=== PATIENT | male | born 1945 | race Caucasian/White ===

== ENCOUNTER → 2016-07-15 | Outpatient (CLI) | payer OTHER ==
[~2016-07-15] MED LIST: ACCUPRIL OR; ACCUPRIL40 MG PO; ACETAMINOPHEN325 M1 OR; ALEVE220 MG PO; ASPIRIN325 OR; BACTRIM DS TAB1 EACH PO; CEFAZOLIN 1GM VI1 G1 PO; CENTRUM SILVER1 EAC4 PO; CENTRUM TABLET1 TAB OR; CEPHALEXIN PO; FISH OIL 1,2001 EAC4 PO; FISHOIL OR; HYDROCHLOROTH12.5 MG OR; HYDROCHLOROTHIA25 M2 PO; LIPITOR40 MG OR; LIPITOR80 MG PO; NORCO 5-325 TA1 EACH PO; QUINU10 PD PO; TOPROL XL100 MG OR; TOPROL XL50 MG PO; VOLTAREN GEL 1100 G1
== END ==
LOC: ULTRA 02:58
DX: R22.9 Localized swelling, mass and lump, unspecified (principal)

== ENCOUNTER 2017-07-23 16:41 | Inpatient (IN) | payer OTHER ==
[~2017-07-23] VITALS: Ht 182.9 cm; Wt 70.3 kg
--- NOTE | ~2017-07-23 | DSS ---
[facility] [place] [address] SHORT STAY SUMMARY Name: ROXY NUÑEZ Room #: 215-P DIS IN M.R.#: [id number] Admission: 07/23/17 Attend Phys: Jc Hernandez MD, Discharge: 07/23/17 Date of : 47 Report #: [id number] THIS REPORT FOR: //name// CC: Will Martinez DATE OF SERVICE: 07/23/2017 HISTORY OF PRESENT ILLNESS: The patient is a 72-year-old male who is well known to myself. He was admitted because of the finding of some significant impedance increased in the bipolar lead, which occurred over the last week, from 400 ohms to 1200 ohms. Subsequently, because of the risk of a potential and unknown at that time whether this could lead to a complete lead fracture which could lead to asystole that he is pacer dependent. He was admitted to the CCU. Laboratory work was obtained. Interrogation eventually by the [employer] device rep with subsequent discussion with Dr. Em of the Electrophysiology service and the technical support of [employer]. The unipolar system is at risk, but my understanding is that the bipolar system has the elevated ohms but the unipolar does not. There are apparently 2 backups still intact that cannot be breached. He is paced rhythm at 70. He is hemodynamically stable and continued observation as an outpatient and/or lead replacement. LABORATORY WORK: Unremarkable. Chemistry is normal. Creatinine is 0.8, potassium 3.9. H and H are 14 and 41. The chest x-ray is pending and we will be looking for a lead fracture, pending that there is no finding as that the maximum ohms had increased from. In May, it had been running around 500. On 07/08, it was 804. On 07/15, it was 1007. On 07/22, it was 1212 and then 1178. He has been compliant with medications. He is asymptomatic. He feels well. He is voicing no complaints. MEDICATIONS: His current meds, which he will continue are aspirin, atorvastatin 40, fish oil, hydrochlorothiazide 12.5, ibuprofen p.r.n., MultiVites and quinapril 40. PAST MEDICAL HISTORY: Positive for the pacemaker, pacemaker dependency for complete heart block, bypass surgery in 1998, mild ischemic cardiomyopathy of 45%, functional class 1, hypertension, hypercholesterolemia, prior knee surgery, patellar surgery, pacemaker originally placed in 1998, repair in 2006 and second pacemaker generator in 2013. FAMILY HISTORY: Mother had Alzheimer's. Father, lung cancer. [facility] [address] [place] [address] SHORT STAY SUMMARY Name: JOAQUINORXY Room #: 215-P DIS IN M.R.#: [id number] Admission: 07/23/17 Attend Phys: Jc Hernandez MD, Discharge: 07/23/17 Date of : 47 Report #: [id number] SOCIAL HISTORY: He is . Social alcohol, no tobacco. He is retired. Three children. Social caffeine. ALLERGIES: No known drug allergies. PHYSICAL EXAMINATION: VITAL SIGNS: Pulse is 70s and paced, blood pressure was 150/82 today. HEENT: Eyes reveal xanthelasmas. Pharynx is clear. NECK: Shows preserved upstrokes without JVD or bruits. LUNGS: Clear. CARDIOVASCULAR: Regular rate and rhythm. S1, S2. ABDOMEN: Soft. No HSM or abdominal bruit. EXTREMITIES: Reveal no edema. Distal pulses were intact. NEUROLOGIC: Nonfocal. SKIN: Warm and dry without xanthoma or ulcer. MUSCULOSKELETAL: No gross joint deformity. ASSESSMENT: 1. Permanent pacemaker placement with recent increase in impedance in the bipolar system, but not the unipolar system. 2. Coronary artery disease with prior coronary artery bypass grafting. 3. Idiopathic/ischemic cardiomyopathy, functional class 1, ejection fraction 45%. 4. Hypertension. 5. Hypercholesterolemia. 6. Degenerative joint disease. RECOMMENDATIONS AND PLAN: After significant discussion with the [employer] and pacemaker device, their technical support, Dr. Em of the EP service, the patient is not at risk for loss of pacing capability even though the bipolar system shows increasing resistance. Continued observation as an outpatient and/or replacement of the lead could be electively performed. This has been discussed with the patient. He really opts for discharge tonight and I think that is appropriate. Chest x-ray is obtained and do not have that report, although I do not think this discharge hinges on that, but will review that either tonight or in the a.m., but we will allow for discharge tonight. <ELECTRONICALLY SIGNED> By: Jc Hernandez MD, FACC 08/03/17 1302 49 [id number] cJ Hernandez MD, FACC /nt
[2017-07-23 18:00] VITALS: BP 151/85
[2017-07-23 19:21] LABS: HEMATOCRIT 41.5 % (42.0-52.0); HEMOGLOBIN 14.1 gm/dL (14.0-18.0); MCH 33.3 pg (26.0-34.0); MCV 97.7 fL (80.0-100.0); RBC 4.25 mil/uL (4.50-6.00); RDW 12.7 % (10.5-14.5); WBC 6.5 thou/uL (4.0-11.0)
[2017-07-23 19:34] LABS: ALBUMIN 4.1 g/dL (3.4-5.0); CALCIUM 9.4 mg/dL (8.5-10.1); CREATININE 0.8 mg/dL (0.7-1.3); POTASSIUM 3.9 mmol/L (3.5-5.1); TOTAL BILIRUBIN 0.7 mg/dL (<0.1-1.0); TOTAL PROTEIN 7.7 g/dL (6.4-8.2)
[2017-07-23 21:01] VITALS: BP 151/82
== END 2017-07-23 21:45 | disposition home or self-care (01) | DRG 310 ==
LOC: 2N 16:41
PROVIDERS: Internal Medicine Cardiovascular Disease
PROC: 4B02XSZ Measurement of Cardiac Pacemaker, External Approach (ICD-10-PCS; principal; 2017-07-23)
DX: I45.9 Conduction disorder, unspecified (principal); I25.10 Atherosclerotic heart disease of native coronary artery without angina pectoris; I10 Essential (primary) hypertension; E78.5 Hyperlipidemia, unspecified; E78.00 Pure hypercholesterolemia, unspecified; I25.5 Ischemic cardiomyopathy; M19.90 Unspecified osteoarthritis, unspecified site; Z95.1 Presence of aortocoronary bypass graft; Z95.0 Presence of cardiac pacemaker; Z81.8 Family history of other mental and behavioral disorders; Z80.1 Family history of malignant neoplasm of trachea, bronchus and lung
CPT/HCPCS: 10797

== ENCOUNTER 2019-03-06 14:02 | Emergency (ER) | payer OTHER ==
[~2019-03-06] VITALS: Ht 182.9 cm; Wt 67.6 kg
[2019-03-06 16:18] VITALS: BP 139/81
== END 2019-03-06 16:36 | disposition home or self-care (01) ==
LOC: ER 14:02
DX: S00.83XA Contusion of other part of head, initial encounter (principal); I10 Essential (primary) hypertension; I25.10 Atherosclerotic heart disease of native coronary artery without angina pectoris; Z95.0 Presence of cardiac pacemaker; W00.0XXA Fall on same level due to ice and snow, initial encounter; Y92.89 Other specified places as the place of occurrence of the external cause; Y93.89 Activity, other specified; Y99.8 Other external cause status

== ENCOUNTER → 2019-05-31 | Outpatient (CLI) | payer OTHER | LOC: SJCVC 15:23 | DX: I25.10 Atherosclerotic heart disease of native coronary artery without angina pectoris (principal); E78.00 Pure hypercholesterolemia, unspecified; I10 Essential (primary) hypertension; Z95.1 Presence of aortocoronary bypass graft; Z95.0 Presence of cardiac pacemaker ==

== ENCOUNTER → 2019-10-09 | Outpatient (CLI) | payer OTHER | LOC: LAB 12:40 | PROVIDERS: ATTEND Family Medicine | DX: Z03.818 Encounter for observation for suspected exposure to other biological agents ruled out (principal) ==

== ENCOUNTER → 2020-02-22 | Outpatient (CLI) | payer OTHER | LOC: RAD 08:50 | PROVIDERS: ATTEND Family Medicine | DX: M19.012 Primary osteoarthritis, left shoulder (principal) ==

== ENCOUNTER → 2020-02-29 | Outpatient (CLI) | payer OTHER | LOC: SJCVCIMAG | PROVIDERS: ATTEND Internal Medicine Cardiovascular Disease | DX: I35.8 Other nonrheumatic aortic valve disorders (principal); I11.9 Hypertensive heart disease without heart failure; I25.810 Atherosclerosis of coronary artery bypass graft(s) without angina pectoris; E78.00 Pure hypercholesterolemia, unspecified; I49.5 Sick sinus syndrome; I45.9 Conduction disorder, unspecified; I25.5 Ischemic cardiomyopathy; I77.9 Disorder of arteries and arterioles, unspecified; Z95.0 Presence of cardiac pacemaker; Z95.1 Presence of aortocoronary bypass graft; Z79.82 Long term (current) use of aspirin; Z79.899 Other long term (current) drug therapy; Z87.891 Personal history of nicotine dependence ==

== ENCOUNTER → 2020-04-25 | Outpatient (CLI) | payer OTHER | LOC: SJCVCIMAG 08:44 | PROVIDERS: ATTEND Internal Medicine Cardiovascular Disease | DX: Z01.818 Encounter for other preprocedural examination (principal); I45.9 Conduction disorder, unspecified; I44.2 Atrioventricular block, complete; I25.810 Atherosclerosis of coronary artery bypass graft(s) without angina pectoris; I25.5 Ischemic cardiomyopathy; E78.5 Hyperlipidemia, unspecified; I10 Essential (primary) hypertension; Z95.0 Presence of cardiac pacemaker; Z95.1 Presence of aortocoronary bypass graft; Z79.82 Long term (current) use of aspirin; Z79.899 Other long term (current) drug therapy; Z87.891 Personal history of nicotine dependence; Z86.73 Personal history of transient ischemic attack (TIA), and cerebral infarction without residual deficits ==

== ENCOUNTER → 2020-04-29 | Outpatient (CLI) | payer OTHER ==
[~2020-04-29] VITALS: Ht 182.9 cm; Wt 71.2 kg
[2020-04-29 10:02] LABS: HEMATOCRIT 39.8 % (42.0-52.0); HEMOGLOBIN 13.3 gm/dL (14.0-18.0); MCH 33.2 pg (26.0-34.0); MCHC 33.5 g/dL (28.0-37.0); RBC 4.02 mil/uL (4.50-6.00); WBC 4.4 thou/uL (4.0-11.0)
[2020-04-29 10:05] VITALS: BP 153/86
[2020-04-29 10:14] LABS: CALCIUM 9.3 mg/dL (8.5-10.1); CREATININE 0.8 mg/dL (0.7-1.3); POTASSIUM 3.9 mmol/L (3.5-5.1)
--- NOTE | 2020-04-29 17:26 | CATHLAB ---
[facility] [place] [address] [place] [address] INVASIVE PROCEDURE REPORT Name: ROXY NUÑEZ Room #: REG JUSTIN Dupree#: [id number] Admission: 04/29/20 Attend Phys: Jc Hernandez MD, Discharge: Date of : 47 Report #: [id number] THIS REPORT FOR: cc: Jagdish Martinez MD, Neal A. MD Mancuso, Gerald M. MD [facility] ~ APPROVED REPORT Study performed: 04/29/2020 10:31:06 Patient Details Patient Status: Out-Patient Room #: The patient is a 74 year-old male Event Personnel Jc Hernandez Manager Proposal, Charisse Willett RN RN, Kimberly Edmonds RTR, DENIAL MANAGEMENT REPRESENTATIVE Monitor, Bekah Lujan RTR Scrub Procedures Performed Left Heart Cath Coronaries, Bypass Grafts [id number] LHCCORCABG Aortogram Abdominal Peripheral Angio 282766 Hemostasis w/ Mynx 96041 Initial Mod Sed Same Phys/QHP Gr5y 169357 08969 Mod Sed Same Phys/QHP Ea 713391 Indication Positive stress test Procedure Narrative The Right Groin^ was infiltrated with 1% Lidocaine subcutaneous anesthesia. A PINNACLE 6FR Sheath #[id number] sheath was inserted into the RFA^. Coronary angiography was performed using coronary diagnostic catheters. The right coronary system was accessed and visualized with a JR4 catheter. The left coronary system was accessed and visualized with a JL4.5 catheter. The left ventricle was accessed and visualized with a PIGTAIL catheter. Left ventriculogram was performed in 30 degree projection. An aortogram of the abdominal aorta was performed. Pre-demployment femoral angiogram was performed . Closure device was deployed with a 6 Fr MYNXGRIP 6/7F #[id number]. The patient tolerated the procedure well and there were no complications associated with the procedure. There was no hematoma. 6F LCB catheter was used for accessing and visualizing the SVG to the DIAG/OM. [facility] [address] [place] [address] INVASIVE PROCEDURE REPORT Name: ROXY NUÑEZ Room #: [facility]#: [id number] Admission: 04/29/20 Attend Phys: Jc Hernandez, Discharge: Date of : 47 Report #: [id number] Intraoperative Conscious Sedation Sedation start time: 11:25 Case end Time: 12:07 Fentanyl 100 mcg Versed 2 mg Fluoro Time: 6.80 minutes Dose: DAP 8216.90 cGycm2 1114 mGy Contrast Type and Amount: Omnipaque 195 ml Hemodynamics The aortic pressure is 149/68 mmHg with a mean of 103 mmHg. The left ventricular pressure is 158/7 mmHg with a mean of mmHg. The left ventricular end diastolic pressure is 11 mmHg. Conclusion 1. Normal left ventricular size and mild global hypokinesis EF 45% range #2 abdominal aortic ultrasound revealing a small infrarenal aortic aneurysm and moderate aortic ectasia. Will evaluate by noninvasive outpatient. #3 left main distal tapered narrowing giving rise to an occluded LAD and essentially occluded circumflex system. #4 proximal LAD occludes. This is filled via ALMEIDA graft. #5 circumflex OM is occluded proximally #6 ALMEIDA to LAD is intact briskly filling in LAD which is relatively small but extends to the apex. #7 large dominant ectatic right coronary artery with moderate distal disease 6070% eccentric lesions giving rise to an occluded PDA and EMERSON which is mild disease #8 SVG to PDA is intact with mild disease #9.SVG to diagonal with jump graft to OM system is intact with mild disease. Recommendations and plan: Continue aggressive risk factor modification no indication for coronary intervention. Will obtain outpatient abdominal aortic ultrasound to evaluate that small aneurysm finding. <ELECTRONICALLY SIGNED> By: Jc Hernandez MD, FACC 04/29/201725 25 25 Jc Hernandez MD, FACC /INF
== END | disposition home or self-care (01) ==
LOC: CATH 06:43
PROVIDERS: ATTEND Internal Medicine Cardiovascular Disease
DX: R94.39 Abnormal result of other cardiovascular function study (principal); I25.810 Atherosclerosis of coronary artery bypass graft(s) without angina pectoris; I71.4 Abdominal aortic aneurysm, without rupture; I10 Essential (primary) hypertension; E78.5 Hyperlipidemia, unspecified; Z95.1 Presence of aortocoronary bypass graft; Z98.890 Other specified postprocedural states; Z79.899 Other long term (current) drug therapy; Z95.0 Presence of cardiac pacemaker; Z79.82 Long term (current) use of aspirin; Z82.49 Family history of ischemic heart disease and other diseases of the circulatory system

== ENCOUNTER → 2020-05-06 | Outpatient (CLI) | payer OTHER | LOC: SJCVCIMAG 07:42 | PROVIDERS: ATTEND Internal Medicine Cardiovascular Disease | DX: I71.4 Abdominal aortic aneurysm, without rupture (principal); I73.9 Peripheral vascular disease, unspecified; Z79.82 Long term (current) use of aspirin; Z79.899 Other long term (current) drug therapy; Z87.891 Personal history of nicotine dependence ==

== ENCOUNTER → 2020-12-03 | Outpatient (CLI) | payer OTHER | LOC: SJCVC 14:28 | PROVIDERS: ATTEND Internal Medicine Cardiovascular Disease | DX: I25.810 Atherosclerosis of coronary artery bypass graft(s) without angina pectoris (principal); E78.00 Pure hypercholesterolemia, unspecified; I44.2 Atrioventricular block, complete; I77.9 Disorder of arteries and arterioles, unspecified; I25.5 Ischemic cardiomyopathy; Z95.0 Presence of cardiac pacemaker; I10 Essential (primary) hypertension; I71.4 Abdominal aortic aneurysm, without rupture; Z95.1 Presence of aortocoronary bypass graft; Z79.82 Long term (current) use of aspirin; Z79.899 Other long term (current) drug therapy; Z87.891 Personal history of nicotine dependence ==